=== PATIENT | female | born 1955 | race Caucasian/White ===

== ENCOUNTER 2021-08-06 10:26 | Outpatient (CLI) | payer MEDICARE | END 2021-08-06 10:27 | disposition home or self-care (01) | LOC: CSHMRI 10:26 | PROVIDERS: ATTEND Family Medicine | DX: M23.8X1 Other internal derangements of right knee (principal); M25.361 Other instability, right knee; S83.281A Other tear of lateral meniscus, current injury, right knee, initial encounter; S82.201A Unspecified fracture of shaft of right tibia, initial encounter for closed fracture ==

== ENCOUNTER → 2022-10-03 | Day surgery (SDC) | payer MEDICARE ==
[~2022-10-03] MED LIST: Lidocaine 1% PF 5 ML VIAL ONE; Sodium Bicarbonate 2.5 MEQ/5 ML VIAL ONE
== END ==
LOC: CSHRAD 07:00
PROVIDERS: ATTEND Neurological Surgery
DX: M50.30 Other cervical disc degeneration, unspecified cervical region (principal); M51.36 Other intervertebral disc degeneration, lumbar region; F32.A Depression, unspecified; Z90.49 Acquired absence of other specified parts of digestive tract; Z87.891 Personal history of nicotine dependence; Z79.899 Other long term (current) drug therapy
CPT/HCPCS: 62305; 72126; 72132